=== PATIENT | female | born 1965 | race African-American/Black ===

== ENCOUNTER 2017-11-16 21:30 | Emergency (ER) | payer OTHER ==
[~2017-11-16] VITALS: Ht 180.3 cm; Wt 129.7 kg
[2017-11-16 21:40] VITALS: BP 107/73
--- NOTE | 2017-11-16 22:12 | Emergency Room Report ---
History of Present Illness General Chief Complaint: Chest Pain Source: Patient Present Illness HPI Is a 52-year-old female with a history of autoimmune disease. She is taking methotrexate and Plaquenil. She presents with chest pain has been there for 3 days now. Constant in nature. Worse with palpation. Worse with leaning forward or laying back. Worse with inspiration. No radiation. No nausea no vomiting. Exertion neck she made it better. No diaphoresis. Pain is 8 out of 10. She went to urgent care and was told to come here. Allergies: Coded Allergies: BLUE DYE (Verified Allergy, Unknown, 11/16/17) CEPHALEXIN (Verified Allergy, Unknown, 11/16/17) CODEINE (Verified Allergy, Unknown, 11/16/17) Crab (Verified Allergy, Unknown, 11/16/17) PROCHLORPERAZINE (Verified Allergy, Unknown, 11/16/17) Patient History Past Medical History: see triage record, old chart reviewed Past Surgical History: other Pertinent Family History: none Social History: Denies: smoking, alcohol use Last Menstrual Period: 2010 Now: No : 4 Para: 1 Reviewed Nursing Documentation: PMH: Agreed; PSxH: Agreed Review of Systems Eye: Denies: eye pain, blurred vision ENT: Denies: ear pain, nose congestion, throat swelling Respiratory: Denies: cough, shortness of breath Cardiovascular: Reports: chest pain; Denies: palpitations Gastrointestinal: Denies: abdominal pain, diarrhea, nausea, vomiting Musculoskeletal: Denies: back pain, joint pain Skin: Denies: rash Neurological: Denies: headache, numbness Endocrine: Denies: increased thirst, increased urine Hematologic/Lymphatic: Denies: easy bruising All Other Systems: negative except mentioned in HPI Physical Exam Vital Signs Date Time Temp Pulse Resp B/P (MAP) Pulse Ox O2 Delivery O2 Flow Rate FiO2 11/16/17 21:39 98.2 64 18 149/80 99 Room Air 98.2 vitals with high blood pressure Sp02 EP Interpretation: reviewed, normal General Appearance: well appearing, no apparent distress, alert Head: normocephalic, atraumatic Eyes: bilateral eye PERRL, bilateral eye EOMI ENT: hearing grossly normal, normal pharynx Neck: full range of motion, supple, no meningismus Respiratory: chest non-tender, lungs clear, normal breath sounds, chest symmetrical - Tenderness to palpation over the sternal Area Cardiovascular #1: regular rate, rhythm, no murmur Gastrointestinal: normal bowel sounds, non tender, no mass, no organomegaly, no bruit, non-distended Musculoskeletal: back normal, gait/station normal, normal range of motion Psychiatric: mood/affect normal Skin: warm/dry Medical Decision Making Diagnostic Impression: Primary Impression: Chest pain Qualified Codes: R07.82 - Intercostal pain Additional Impression: UTI (urinary tract infection) Qualified Codes: N30.00 - Acute cystitis without hematuria ER Course Patient with chest pain. Is reproducible. Is worse with inspiration and movement. This most likely muscle skeletal pain. No evidence of ACS, PE, dissection to name a few. She is better after Toradol. We'll discharge home. EKG Diagnostic Results Rate: normal Rhythm: NSR ST Segments: no acute changes ASA given to the pt in ED: Yes Rhythm Strip Diag. Results Rhythm Strip Time: 22:12 EP Interpretation: yes Rate: 60 Rhythm: NSR, no PVC's, no ectopy Chest X-Ray Diagnostic Results Chest X-Ray Diagnostic Results : Chest X-Ray Ordered: Yes # of Views/Limited/Complete: 1 View Indication: Chest Pain EP Interpretation: Yes Interpretation: no consolidation, no effusion, no pneumothorax, no acute cardiopulmonary disease Impression: No acute disease Electronically Signed by: Himanshu Swain MD Last Vital Signs Date Time Temp Pulse Resp B/P (MAP) Pulse Ox O2 Delivery O2 Flow Rate FiO2 11/16/17 21:39 98.2 64 18 149/80 99 Room Air 98.2 Status: improved Disposition: HOME, SELF-CARE Condition: Stable Scripts Ibuprofen* (MOTRIN*) 600 Mg Tablet 600 MG ORAL THREE TIMES A DAY, #30 TAB 0 Refills Prov: HIMANSHU SWAIN M.D. 11/16/17 Nitrofurantoin Monohyd/M-Cryst* (MACROBID 100 MG*) 100 Mg Capsule 100 MG ORAL EVERY 12 HOURS, #14 CAP Prov: HIMANSHU SWAIN M.D. 11/16/17 Patient Instructions: Nonspecific Chest Pain Additional Instructions: Follow-up with your doctor in 7 days. Return if symptom worsen. HIMANSHU SWAIN M.D. Nov 16, 2017 22:12
[2017-11-16] MEDS ORDERED: Ketorolac 30mg Inj IV ONE (22:15)
[2017-11-16] MEDS ORDERED: Aspirin Baby 81mg ORAL ONE (22:15)
[2017-11-16 22:44] LABS: APPEARANCE,URINE SLIGHTLY CLOUDY; BILIRUBIN, URINE NEGATIVE (NEGATIVE); COLOR,URINE AMBER; GLUCOSE, URINE (UA) NEGATIVE (NEGATIVE); KETONES,URINE NEGATIVE (NEGATIVE); NITRITE,URINE NEGATIVE (NEGATIVE); PH,URINE 6 (4.5-8.0); PROTEIN,URINE NEGATIVE (NEGATIVE); UROBILINOGEN,URINE NORMAL MG/DL (0.0-1.0)
[2017-11-16 22:47] LABS: EOSINOPHILS % (AUTO) 0.5 % (0.0-3.0); HEMATOCRIT 36.6 % (37.0-47.0); HEMOGLOBIN 11.6 G/DL (12.0-16.0); LYMPHOCYTES % (AUTO) 28.1 % (20.0-45.0); MEAN CORPUSCULAR VOLUME 89 FL (80-99); MONOCYTES % (AUTO) 8.4 % (1.0-10.0); NEUTROPHILS % (AUTO) 61.9 % (45.0-75.0); PLATELET COUNT 186 K/UL (150-450); RED BLOOD COUNT 4.11 M/UL (4.20-5.40); RED CELL DISTRIBUTION WIDTH 13.7 % (11.6-14.8); WHITE BLOOD COUNT 6.6 K/UL (4.8-10.8)
[2017-11-16 22:56] LABS: ANION GAP 6 mmol/L (5-15); BLOOD UREA NITROGEN 15 mg/dL (7-18); CALCIUM 9.2 MG/DL (8.5-10.1); CARBON DIOXIDE 30 MMOL/L (21-32); CHLORIDE 103 MMOL/L (98-107); CREATININE 1.1 MG/DL (0.55-1.30); LEUKOCYTE ESTERASE ,URINE 3+ (NEGATIVE); POTASSIUM 3.9 MMOL/L (3.5-5.1); SODIUM 139 MMOL/L (136-145)
[2017-11-16] MEDS ORDERED: cefTRIAXone 1 GM in NS 55 ML IVPB ONE (23:00)
[2017-11-16 23:09] LABS: ALANINE AMINOTRANSFERASE 25 U/L (12-78); ALBUMIN 3.9 G/DL (3.4-5.0); ALKALINE PHOSPHATASE 100 U/L (46-116); ASPARTATE AMINO TRANSFERASE 16 U/L (15-37); BILIRUBIN,TOTAL 0.3 MG/DL (0.2-1.0); CKMB 0.5 NG/ML (0.0-3.6); CREATINE KINASE 117 U/L (26-308)
[2017-11-16] MEDS ORDERED: IBUPROFEN600 MG ORAL (23:17)
[2017-11-16] MEDS ORDERED: NITROFURANTOIN100 M2 ORAL (23:17)
[2017-11-16 23:34] VITALS: BP 119/65
[2017-11-16 23:36] VITALS: BP 119/65
--- NOTE | 2017-11-17 09:13 | Diagnostic Imaging Report ---
Indication: Chest pain Technique: One view of the chest Comparison: none Findings: Lungs and pleural spaces are clear. Heart size is normal Impression: No acute process
--- NOTE | 2017-11-18 17:27 | Cardiology Report ---
APPROVED REPORT EKG Measurement Heart [id number] Sinus bradycardia with sinus arrhythmia ST elevation, consider early repolarization, pericarditis, or injury T wave abnormality, consider anterior ischemia Abnormal ECG
== END 2017-11-16 23:39 | disposition home or self-care (01) ==
LOC: EMR 22:00
DX: R07.9 Chest pain, unspecified (principal); N39.0 Urinary tract infection, site not specified; Z88.5 Allergy status to narcotic agent; Z88.1 Allergy status to other antibiotic agents; Z91.013 Allergy to seafood
CPT/HCPCS: 36415; 71045; 80053; 81003; 82550; 82553; 84484; 85025; 87086; 87181; 93005; 96361; 96365; 96375; 99284; J0696; J1885